=== PATIENT | female | born 1995 | race Caucasian/White ===

== ENCOUNTER 2018-04-25 21:30 | Emergency (ER) | payer BC, SELFPAY ==
[2018-04-25] MEDS ORDERED: Adacel (T-DAP) 0.5 ML VIAL ONE (22:19)
== END 2018-04-25 22:35 | disposition home or self-care (01) ==
LOC: ERS 21:30
DX: S09.21XA Traumatic rupture of right ear drum, initial encounter (principal); X58.XXXA Exposure to other specified factors, initial encounter
CPT/HCPCS: 90471; 90715